=== PATIENT | female | born 1945 | race Two or more races ===

== ENCOUNTER 2017-09-04 07:25 | Outpatient (CLI) | payer OTHER ==
[~2017-09-04 07:25] MED LIST: AZILECT1 MG; NABUMETONE500 MG PO; PERCOCET 5/3251 TAB PO; SINEMET 10-1001 EACH; SYNTHROID75 MCG
== END 2017-09-04 08:16 | disposition home or self-care (01) ==
LOC: LAB 07:25
DX: E61.2 Magnesium deficiency (principal); E61.7 Deficiency of multiple nutrient elements; E78.2 Mixed hyperlipidemia; D53.8 Other specified nutritional anemias; N36.2 Urethral caruncle; N39.0 Urinary tract infection, site not specified

== ENCOUNTER → 2017-12-23 06:31 | Outpatient (CLI) | payer OTHER | END | disposition home or self-care (01) | LOC: LAB 06:31 | DX: D64.89 Other specified anemias (principal); N39.0 Urinary tract infection, site not specified; E11.9 Type 2 diabetes mellitus without complications; E78.4 Other hyperlipidemia; E03.8 Other specified hypothyroidism ==

== ENCOUNTER → 2018-01-24 06:40 | Outpatient (CLI) | payer OTHER | END | disposition home or self-care (01) | LOC: LAB 06:40 | DX: I11.0 Hypertensive heart disease with heart failure (principal); D53.8 Other specified nutritional anemias; N39.0 Urinary tract infection, site not specified; E04.0 Nontoxic diffuse goiter; E78.2 Mixed hyperlipidemia ==

== ENCOUNTER 2018-01-24 07:32 | Outpatient (CLI) | payer OTHER | END 2018-01-24 07:42 | disposition home or self-care (01) | LOC: SONOGRAMA 07:32 | DX: E04.2 Nontoxic multinodular goiter (principal) ==

== ENCOUNTER 2018-02-23 11:24 | Emergency (ER) | payer OTHER ==
[~2018-02-23] VITALS: Ht 160 cm; Wt 67.6 kg
[2018-02-23] MEDS ORDERED: BACTRIM DS TAB1 EACH PO (14:31)
== END 2018-02-23 14:41 | disposition home or self-care (01) ==
LOC: ER 11:24
DX: R31.0 Gross hematuria (principal)

== ENCOUNTER 2018-06-30 07:11 | Outpatient (CLI) | payer OTHER ==
[~2018-06-30 07:11] MED LIST changes: +BACTRIM DS TAB1 EACH PO
== END 2018-06-30 07:17 | disposition home or self-care (01) ==
LOC: LAB 07:11
DX: I11.0 Hypertensive heart disease with heart failure (principal); D53.8 Other specified nutritional anemias; N39.0 Urinary tract infection, site not specified; E78.2 Mixed hyperlipidemia; E04.0 Nontoxic diffuse goiter; N36.2 Urethral caruncle; E11.9 Type 2 diabetes mellitus without complications

== ENCOUNTER 2018-10-18 13:11 | Emergency (ER) | payer OTHER ==
[~2018-10-18] VITALS: Ht 167.6 cm; Wt 67.6 kg
== END 2018-10-18 19:49 | disposition home or self-care (01) ==
LOC: ER 13:11
DX: N39.0 Urinary tract infection, site not specified (principal)

== ENCOUNTER → 2018-11-26 08:40 | Outpatient (CLI) | payer OTHER | END | disposition home or self-care (01) | LOC: LAB 08:40 | DX: E04.0 Nontoxic diffuse goiter (principal); E78.2 Mixed hyperlipidemia; D53.8 Other specified nutritional anemias; I11.0 Hypertensive heart disease with heart failure; N39.0 Urinary tract infection, site not specified; E55.9 Vitamin D deficiency, unspecified; E11.9 Type 2 diabetes mellitus without complications ==

== ENCOUNTER → 2018-12-09 | Outpatient (CLI) | payer OTHER | END | disposition home or self-care (01) | LOC: NUCLEAR 10:30 | DX: M81.0 Age-related osteoporosis without current pathological fracture (principal); E04.9 Nontoxic goiter, unspecified ==

== ENCOUNTER 2019-01-05 13:37 | Outpatient (CLI) | payer OTHER | END 2019-01-05 13:44 | disposition home or self-care (01) | LOC: SONOGRAMA 13:37 → MAMO-SONO 14:15 | DX: E04.8 Other specified nontoxic goiter (principal) ==

== ENCOUNTER 2019-05-29 06:45 | Outpatient (CLI) | payer OTHER | END 2019-05-29 06:52 | disposition home or self-care (01) | LOC: LAB 06:45 | DX: D50.8 Other iron deficiency anemias (principal); E03.8 Other specified hypothyroidism; E78.2 Mixed hyperlipidemia; R19.5 Other fecal abnormalities; N39.0 Urinary tract infection, site not specified; D53.8 Other specified nutritional anemias; E04.8 Other specified nontoxic goiter ==

== ENCOUNTER → 2019-06-02 06:47 | Outpatient (CLI) | payer OTHER | END | disposition home or self-care (01) | LOC: LAB 06:47 | DX: D50.8 Other iron deficiency anemias (principal); E78.2 Mixed hyperlipidemia; E03.8 Other specified hypothyroidism; E55.9 Vitamin D deficiency, unspecified; N39.0 Urinary tract infection, site not specified ==

== ENCOUNTER 2019-06-27 10:47 | Outpatient (CLI) | payer OTHER | END 2019-06-27 15:41 | disposition home or self-care (01) | LOC: NUCLEAR 10:47 | DX: E04.2 Nontoxic multinodular goiter (principal) | CPT/HCPCS: 78013; A9512 ==

== ENCOUNTER → 2019-06-27 | Outpatient (CLI) | payer OTHER | END | disposition home or self-care (01) | LOC: SONOGRAMA 07:45 → RAD 07:45 | DX: R13.19 Other dysphagia (principal); E04.8 Other specified nontoxic goiter ==

== ENCOUNTER 2019-09-21 06:37 | Outpatient (CLI) | payer OTHER | END 2019-09-21 06:44 | disposition home or self-care (01) | LOC: LAB 06:37 | DX: I11.0 Hypertensive heart disease with heart failure (principal); D53.8 Other specified nutritional anemias; E04.8 Other specified nontoxic goiter; N39.0 Urinary tract infection, site not specified; D50.1 Sideropenic dysphagia; E11.9 Type 2 diabetes mellitus without complications; N36.2 Urethral caruncle ==

== ENCOUNTER 2021-04-25 08:18 | Outpatient (CLI) | payer OTHER ==
[2021-04-30] MEDS ORDERED: SYNTHROID88 MCG PO (09:19)
== END 2021-04-25 08:27 | disposition home or self-care (01) ==
LOC: MRI 08:18
PROVIDERS: ATTEND Psychiatry & Neurology Clinical Neurophysiology
DX: M75.101 Unspecified rotator cuff tear or rupture of right shoulder, not specified as traumatic (principal)
CPT/HCPCS: 73221

== ENCOUNTER 2021-05-06 05:55 | Day surgery (SDC) | payer OTHER ==
[~2021-05-06 05:55] MED LIST changes: +SYNTHROID88 MCG PO
== END 2021-05-06 15:05 | disposition home or self-care (01) ==
LOC: CIR.AMB 05:55
PROVIDERS: ATTEND Orthopaedic Surgery
DX: M75.121 Complete rotator cuff tear or rupture of right shoulder, not specified as traumatic (principal); M66.821 Spontaneous rupture of other tendons, right upper arm; M75.21 Bicipital tendinitis, right shoulder; Z20.822 Contact with and (suspected) exposure to COVID-19

== ENCOUNTER 2021-05-28 05:49 | Emergency (ER) | payer OTHER ==
[~2021-05-28] VITALS: Ht 165.1 cm; Wt 65.3 kg
== END 2021-05-28 14:10 | disposition home or self-care (01) ==
LOC: ER 05:49
DX: R10.32 Left lower quadrant pain (principal)

== ENCOUNTER → 2022-02-09 | Outpatient (CLI) | payer OTHER | END | disposition home or self-care (01) | LOC: SONOGRAMA 10:06 | PROVIDERS: ATTEND Pathology Anatomic Pathology & Clinical Pathology | DX: E04.1 Nontoxic single thyroid nodule (principal); E06.3 Autoimmune thyroiditis ==

== ENCOUNTER 2023-04-15 07:13 | Outpatient (CLI) | payer OTHER | END 2023-04-15 07:23 | disposition home or self-care (01) | LOC: RAD 07:13 | PROVIDERS: ATTEND Obstetrics & Gynecology | DX: N20.0 Calculus of kidney (principal); J45.30 Mild persistent asthma, uncomplicated; R03.0 Elevated blood-pressure reading, without diagnosis of hypertension | CPT/HCPCS: 71046; 74177; Q9965 ==

== ENCOUNTER 2023-08-06 07:26 | Outpatient (CLI) | payer OTHER | END 2023-08-06 07:33 | disposition home or self-care (01) | LOC: NUCLEAR 07:26 | PROVIDERS: ATTEND Internal Medicine | DX: I25.119 Atherosclerotic heart disease of native coronary artery with unspecified angina pectoris (principal); R07.9 Chest pain, unspecified | CPT/HCPCS: 78452; 93017; A9500; J0153 ==

== ENCOUNTER 2023-08-16 06:15 | Day surgery (SDC) | payer OTHER | END 2023-08-16 12:25 | disposition home or self-care (01) | LOC: AMB-ENDOS 06:15 | PROVIDERS: ATTEND Surgery | DX: D12.0 Benign neoplasm of cecum (principal); K63.5 Polyp of colon; Z20.822 Contact with and (suspected) exposure to COVID-19; K31.84 Gastroparesis; K29.50 Unspecified chronic gastritis without bleeding; K44.9 Diaphragmatic hernia without obstruction or gangrene; K21.9 Gastro-esophageal reflux disease without esophagitis; R10.13 Epigastric pain ==

== ENCOUNTER 2024-11-02 04:50 | Emergency (ER) | payer OTHER ==
[~2024-11-02] VITALS: Ht 167.6 cm; Wt 65.3 kg
[2024-11-02] MEDS ORDERED: KETOROLAC TROMETHAMINE 60 MG VIAL IM STA (06:25)
[2024-11-02] MEDS ORDERED: KETOROLAC TROMETHAMINE 60 MG VIAL IM ONE ×2 (06:31→07:01)
[2024-11-02] MEDS ORDERED: MIDAZOLAM HCL/PF 5 MG/ML VIAL IV STA (06:54)
[2024-11-02] MEDS ORDERED: FLUMAZENIL 0.5 MG/5 ML ML IV ONE (07:45)
[2024-11-02] MEDS ORDERED: MELOXICAM15 MG PO (08:05)
[2024-11-02] MEDS ORDERED: 0.9 % SODIUM CHLORIDE 1,000 ML IV SCH (09:00)
== END 2024-11-02 08:38 ==
LOC: ER 04:51
DX: G89.11 Acute pain due to trauma (principal); M25.512 Pain in left shoulder; Z88.0 Allergy status to penicillin
CPT/HCPCS: 23650; 29105; 73020; 73030; 93041; 96365; 96372; 99283; J1885; J3490 ×2

== ENCOUNTER 2024-11-15 06:04 | Emergency (ER) | payer OTHER ==
[~2024-11-15] VITALS: Ht 165.1 cm; Wt 66.7 kg
[~2024-11-15 06:04] MED LIST changes: +MELOXICAM15 MG PO
[2024-11-15] MEDS ORDERED: MIDAZOLAM HCL/PF 5 MG/ML VIAL IV STA (06:32)
[2024-11-15] MEDS ORDERED: RINGERS SOLUTION,LACTATED 1,000 ML IV ONE (06:45)
[2024-11-15] MEDS ORDERED: FLUMAZENIL 0.5 MG/5 ML ML IV ONE ×2 (07:42→08:30)
[2024-11-15] MEDS ORDERED: MELOXICAM15 MG PO (08:00)
[2024-11-15] MEDS ORDERED: KETOROLAC TROMETHAMINE 60 MG VIAL IM STA (08:57)
[2024-11-15] MEDS ORDERED: ACETAMINOPHEN 500 MG GEL..CAP PO STA (08:57)
[2024-11-15] MEDS ORDERED: KETOROLAC TROMETHAMINE 60 MG VIAL IM ONE (09:03)
[2024-11-15] MEDS ORDERED: ACETAMINOPHEN 500 MG GEL..CAP PO ONE (09:03)
== END 2024-11-15 11:33 ==
LOC: ER 06:04
DX: S43.085A Other dislocation of left shoulder joint, initial encounter (principal); X58.XXXA Exposure to other specified factors, initial encounter; Y93.89 Activity, other specified; Y92.89 Other specified places as the place of occurrence of the external cause; Y99.8 Other external cause status; Z88.0 Allergy status to penicillin
CPT/HCPCS: 23650; 73020; 93041; 96365; 96372; 99283; J1885; J3490 ×2

== ENCOUNTER 2025-01-18 20:59 | Emergency (ER) | payer OTHER ==
[~2025-01-18] VITALS: Ht 165.1 cm; Wt 66.7 kg
[2025-01-18] MEDS ORDERED: LEXAPRO20 MG PO (22:08)
== END 2025-01-19 04:44 | disposition home or self-care (01) ==
LOC: ER 21:18
DX: S00.03XA Contusion of scalp, initial encounter (principal); W19.XXXA Unspecified fall, initial encounter; Y93.89 Activity, other specified; Y92.098 Other place in other non-institutional residence as the place of occurrence of the external cause; Y99.8 Other external cause status; R51.9 Headache, unspecified; Z88.0 Allergy status to penicillin

== ENCOUNTER 2025-04-09 10:05 | Emergency (ER) | payer OTHER ==
[~2025-04-09] VITALS: Ht 165.1 cm; Wt 66.7 kg
[~2025-04-09 10:05] MED LIST changes: +LEXAPRO20 MG PO
[2025-04-09] MEDS ORDERED: PROPOFOL 10,000 MCG/ML VIAL IV ONE (11:00)
[2025-04-09] MEDS ORDERED: 0.9 % SODIUM CHLORIDE 1,000 ML IV SCH (11:00)
== END 2025-04-09 13:08 | disposition home or self-care (01) ==
LOC: ER 10:05
DX: S43.085A Other dislocation of left shoulder joint, initial encounter (principal); X58.XXXA Exposure to other specified factors, initial encounter; Y93.89 Activity, other specified; Y92.018 Other place in single-family (private) house as the place of occurrence of the external cause; Y99.9 Unspecified external cause status; G20.A1 Parkinson's disease without dyskinesia, without mention of fluctuations; Z88.0 Allergy status to penicillin
CPT/HCPCS: 23650; 73030; 93041; 96365; 99284; J3490